=== PATIENT | female | born 1995 | race Caucasian/White ===

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

== ENCOUNTER 2017-08-03 13:42 | Emergency (ER) | payer OTHER ==
[2017-08-03 13:46] VITALS: BP 142/75; PULSE 109; TEMP 99.2; BMI 25.2
--- NOTE | 2017-08-03 13:48 | PDOC ---
History of Present Illness - General History Source: Patient Exam Limitations: No Limitations - History of Present Illness Initial Comments: 08/03/17 15:22 The patient is a 21 year old female with a significant past medical history of asthma, who presents to the ED with a worsening cough and cold. Patient complains of throat pain, fatigue, and subjective fevers as well. Patient denies taking any over the counter medications. Patient denies fever, nausea, vomiting, diarrhea. Denies dysuria, frequency, hematuria. Patient denies recent travels. Patient states her sister recently had streptococcal pharyngitis. Patient is also a college student. LMP: Jul 15, 2017. Patient denies any allergies to meds. <Tomás Muller - Last Filed: 08/03/17 15:43> <Luciano Shearer - Last Filed: 08/03/17 16:18> - General Chief Complaint: Cold Symptoms Stated Complaint: COUGH Time Seen by Provider: 08/03/17 13:48 Past History <Tomás Muller - Last Filed: 08/03/17 15:43> - Past Medical History Asthma: Yes Other medical history: PIT TUMOR - Reproductive History (#): 0 Para: 0 Spontaneous : 0 - Immunization History Immunization Up to Date: Yes - Suicide/Smoking/Psychosocial Hx Smoking History: Never smoked Have you smoked in the past 12 months: No Number of Cigarettes Smoked Daily: 0 Hx Alcohol Use: No Drug/Substance Use Hx: No Substance Use Type: None <Luciano Shearer - Last Filed: 08/03/17 16:18> - Past Medical History Allergies/Adverse Reactions: Allergies Allergy/AdvReac Type Severity Reaction Status Date / Time No Known Allergies Allergy Verified 08/03/17 13:43 Home Medications: Ambulatory Orders Albuterol 0.083% Nebulizer Evelyne [Ventolin 0.083% Nebulizer Soln -] 1 amp PO ASDIR #1 box 04/19/16 Guaifenesin/Pseudoephedrne HCl [Mucinex D ER Tablet] 1 each PO DAILY #10 tab.er.12h 08/03/17 Salmeterol/Fluticasone [Advair 250Mcg/50Mcg -] 1 inh IH BID #1 inh 08/03/17 Review of Systems - Review of Systems Able to Perform ROS?: Yes Comments:: 08/03/17 15:23 GENERAL/CONSTITUTIONAL: + subjective fevers. + fatigue. No chills. HEAD, EYES, EARS, NOSE AND THROAT: + sore throat. No change in vision. CARDIOVASCULAR: No chest pain or shortness of breath. RESPIRATORY: + cough. No wheezing, or hemoptysis. GASTROINTESTINAL: No nausea, vomiting, diarrhea or constipation. GENITOURINARY: No dysuria, frequency, or change in urination. MUSCULOSKELETAL: No joint or muscle swelling or pain. No neck or back pain. SKIN: No rash NEUROLOGIC: + headache. No vertigo, loss of consciousness, or change in strength /sensation. ENDOCRINE: No increased thirst. No abnormal weight change. HEMATOLOGIC/LYMPHATIC: No anemia, easy bleeding, or history of blood clots. ALLERGIC/IMMUNOLOGIC: No hives or skin allergy. <Tomás Muller - Last Filed: 08/03/17 15:43> *Physical Exam - Vital Signs Last Vital Signs Temp Pulse Resp BP Pulse Ox 99.2 F 109 H 20 142/75 99 08/03/17 13:43 08/03/17 13:43 08/03/17 13:43 08/03/17 13:43 08/03/17 13:43 - Physical Exam Comments: 08/03/17 15:25 GENERAL: Awake, alert, and fully oriented, in no acute distress HEAD: No signs of trauma EYES: PERRLA, EOMI, sclera anicteric, conjunctiva clear ENT: Significant nasal congestion with watery discharge. Ears clear. Throat clear. No sign of erythema exudates or swelling. No sinus tenderness to palpation.. No nodes palpated. Moist mucosa NECK: Normal ROM, supple, no lymphadenopathy, JVD, or masses LUNGS: Breath sounds equal, clear to auscultation bilaterally. No wheezes, and no crackles HEART: Regular rate and rhythm, normal S1 and S2, no murmurs, rubs or gallops ABDOMEN: Soft, nontender, normoactive bowel sounds. No guarding, no rebound. No masses EXTREMITIES: Normal range of motion, no edema. No clubbing or cyanosis. No cords, erythema, or tenderness NEUROLOGICAL: Cranial nerves II through XII grossly intact. Normal speech, normal gait SKIN: Warm, Dry, normal turgor, no rashes or lesions noted. <Tomás Muller - Last Filed: 08/03/17 15:43> - Vital Signs Last Vital Signs Temp Pulse Resp BP Pulse Ox 99.2 F 109 H 20 142/75 99 08/03/17 13:43 08/03/17 13:43 08/03/17 13:43 08/03/17 13:43 08/03/17 13:43 <Luciano Shearer - Last Filed: 08/03/17 16:18> ED Treatment Course - ADDITIONAL ORDERS Additional order review: Laboratory Results 08/03/17 14:49 Urine HCG, Qual Negative <Tomás Muller - Last Filed: 08/03/17 15:43> Medical Decision Making - Medical Decision Making 08/03/17 16:16 Strep is negative No nodes or hepatosplenomegaly, nor acute pharyngitis suspicious of mono No wheezing with full breath sounds throughout bilaterally. No sign of bronchitis or pneumonia Significant nasal congestion with watery discharge suggestive of a viral URI Maintenance medications for asthma were refilled, including Advair and albuterol rescue inhaler Mucinex with decongestant for comfort. Tylenol and Advil as needed. Follow-up with primary physician or return to ER if there is fever, chest pain, shortness of breath, or worsening of symptoms. Fully ambulatory and in no distress upon discharge to follow-up as directed <Luciano Shearer - Last Filed: 08/03/17 16:18> *DC/Admit/Observation/Transfer - Attestations Scribe Attestion: 08/03/17 15:25 Documentation prepared by Tomás Muller, acting as medical dosimetrist for Luciano Arndt MD/. <Tomás Muller - Last Filed: 08/03/17 15:43> - Discharge Dispostion Admit: No <Luciano Shearer - Last Filed: 08/03/17 16:18> Diagnosis at time of Disposition: Viral URI with cough - Discharge Dispostion Disposition: HOME Condition at time of disposition: Stable - Prescriptions Prescriptions: Salmeterol/Fluticasone [Advair 250Mcg/50Mcg -] 1 inh IH BID #1 inh Guaifenesin/Pseudoephedrne HCl [Mucinex D ER Tablet] 1 each PO DAILY #10 tab.er.12h - Referrals Referrals: Miri Fuentes MD [Staff Physician] - 1 week - Patient Instructions Printed Discharge Instructions: DI for Viral Upper Respiratory Infection -- Adult Additional Instructions: If there is wheezing, shortness of breath, or chest tightness, use your albuterol inhaler or nebulizer. Consider using Symbicort daily during the ALLERGY season to control your asthma. Decongestants and expectorant as directed may help if symptoms Antibiotics will probably not help, and may be harmful, since this is most likely a virus infection, and your normal germs (bacteria ) assist in controlling viruses. - Post Discharge Activity Forms/Work/School Notes: Back to Work
== END 2017-08-03 16:15 | disposition home or self-care (01) ==
LOC: FER 13:42
DX: J06.9 Acute upper respiratory infection, unspecified (principal); R05 Cough; J45.909 Unspecified asthma, uncomplicated
CPT/HCPCS: 84703; 87070; 87430; 99282-25

== ENCOUNTER 2017-08-06 09:33 | Emergency (ER) | payer OTHER ==
[2017-08-06 09:37] VITALS: BP 139/84; PULSE 92; TEMP 98.5; BMI 25.6
[2017-08-06] MEDS ORDERED: predniSONE 20 MG TABLET (UD) PO ONE (10:04)
[2017-08-06] MEDS ORDERED: ALBUTEROL SO4 2.5/IPRATROPIUM 0.5 INH SOL 3 ML VIAL.NEB. NEB ONE ×4 (10:04→11:14)
--- NOTE | 2017-08-06 10:31 | PDOC ---
History of Present Illness - General Chief Complaint: RX Refill Stated Complaint: Wants prescription for Albuterol Time Seen by Provider: 08/06/17 09:58 History Source: Patient Exam Limitations: No Limitations - History of Present Illness Initial Comments: 08/06/17 10:25 Patient states has asthma exacerbation. Was seen 3 days ago at [facility] emergency department and provided albuterol nebulizers. At that time she did not realize she had was out of her albuterol solution for her nebulizer at home and has had continued wheezing and worsening. Denies fever, denies purulent drainage with cough, but feels is tight. Did not receive prednisone or steroids without deficit. 08/06/17 11:15 Timing/Duration: unsure, 1 week Severity: mild Modifying Factors: improves with: medication Associated Symptoms: reports: cough, headaches, malaise. denies: fever/chills Past History - Travel Traveled outside of the country in the last 30 days: No Close contact w/someone who was outside of country & ill: No - Past Medical History Allergies/Adverse Reactions: Allergies Allergy/AdvReac Type Severity Reaction Status Date / Time No Known Allergies Allergy Verified 08/06/17 09:36 Home Medications: Ambulatory Orders Albuterol 0.083% Nebulizer Evelyne [Ventolin 0.083% Nebulizer Soln -] 1 amp PO ASDIR #1 box 04/19/16 Guaifenesin/Pseudoephedrne HCl [Mucinex D ER Tablet] 1 each PO DAILY #10 tab.er.12h 08/03/17 Salmeterol/Fluticasone [Advair 250Mcg/50Mcg -] 1 inh IH BID #1 inh 08/03/17 Albuterol 0.083% Nebulizer Evelyne [Ventolin 0.083% Nebulizer Soln -] 1 neb NEB Q4H PRN #30 vial 08/06/17 Asthma: Yes - Reproductive History (#): 0 Para: 0 Spontaneous : 0 - Immunization History Immunization Up to Date: Yes - Suicide/Smoking/Psychosocial Hx Smoking History: Never smoked Have you smoked in the past 12 months: No Number of Cigarettes Smoked Daily: 0 Information on smoking cessation initiated: No Hx Alcohol Use: No Drug/Substance Use Hx: No Substance Use Type: None Review of Systems - Review of Systems Able to Perform ROS?: Yes Is the patient limited [place] proficient: Yes Constitutional: Yes: Symptoms Reported, See HPI, Chills, Loss of Appetite, Malaise HEENTM: Yes: Symptoms Reported, See HPI, Nose Congestion. No: Throat Swelling, Mouth Pain Respiratory: Yes: Symptoms reported, See HPI, Cough, Wheezing ABD/GI: No: Symptoms Reported Integumentary: Yes: See HPI. No: Symptoms Reported *Physical Exam - Vital Signs Last Vital Signs Temp Pulse Resp BP Pulse Ox 98.5 F 92 H 19 139/84 97 08/06/17 09:35 08/06/17 09:35 08/06/17 09:35 08/06/17 09:35 08/06/17 09:35 - Physical Exam General Appearance: Yes: Nourished, Appropriately Dressed HEENT: positive: BABAK, TMs Normal, Pharynx Normal (no redness or swelling , ) Neck: negative: Tender Respiratory/Chest: positive: Wheezing (course and tight inspiratory breath sounds bilaterally oozing). negative: Lungs Clear, Normal Breath Sounds Cardiovascular: positive: Regular Rhythm Gastrointestinal/Abdominal: positive: Normal Bowel Sounds, Soft. negative: Tender Musculoskeletal: positive: Normal Inspection. 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 Used Kenalog as pharmacy will not approve prednisone as an outpatient, Cont wheezing but much better. Will provide 3rd treatmetn and discharge when completed. 08/06/17 11:12 *DC/Admit/Observation/Transfer Diagnosis at time of Disposition: Asthma flare Qualifiers: Asthma severity: mild Asthma persistence: intermittent Qualified Code(s): J45.21 - Mild intermittent asthma with (acute) exacerbation - Discharge Dispostion Disposition: HOME Condition at time of disposition: Stable Admit: No - Prescriptions Prescriptions: Albuterol 0.083% Nebulizer Evelyne [Ventolin 0.083% Nebulizer Soln -] 1 neb NEB Q4H PRN #30 vial PRN Reason: Cough - Referrals Referrals: Aleksandar Fatima MD [Primary Care Provider] - - Patient Instructions Additional Instructions: Rest, drink lots of fluids: Teas, water, soups, Pedialyte Saltwater gargles Steamy showers/seem to face break up mucus Avoid contact with others until fevers and cough resolved Lots of handwashing and good hygiene Continue [id number] medications for symptomatic relief Tylenol or Motrin for fever and pain Continue albuterol nebulizers every 4-6 hours for the next 2 days then as needed for continued cough Followup with private physician in one to 2 days Return to emergency department / pediatric hospital for worsened symptoms, fevers, dehydration - Post Discharge Activity Forms/Work/School Notes: Back to Work
[2017-08-06] MEDS ORDERED: TRIAMCINOLONE ACET 40MG/1ML VIAL IM ONE (10:41)
[2017-08-06] MEDS ORDERED: TRIAMCINOLONE ACET 40MG/1ML VIAL ONE (10:44)
== END 2017-08-06 11:44 | disposition home or self-care (01) ==
LOC: JERFT 09:33
PROC: 3E033NZ Introduction of Analgesics, Hypnotics, Sedatives into Peripheral Vein, Percutaneous Approach (ICD-10-PCS; principal; 2017-08-06)
PROC: 3E0F7GC Introduction of Other Therapeutic Substance into Respiratory Tract, Via Natural or Artificial Opening (ICD-10-PCS; 2017-08-06)
PROC: 3E0F7GC Introduction of Other Therapeutic Substance into Respiratory Tract, Via Natural or Artificial Opening (ICD-10-PCS; 2017-08-06)
DX: Z76.0 Encounter for issue of repeat prescription (principal); J45.21 Mild intermittent asthma with (acute) exacerbation
CPT/HCPCS: 84703; 94640; 96374; 99281-25

== ENCOUNTER 2018-08-12 22:56 | Emergency (ER) | payer OTHER ==
[2018-08-12 23:06] VITALS: BP 123/77; PULSE 74; TEMP 97.9; BMI 29.2
[2018-08-12] MEDS ORDERED: ALBUTEROL SO4 2.5/IPRATROPIUM 0.5 INH SOL 3 ML VIAL.NEB. NEB ONE ×2 (23:12→23:18)
--- NOTE | 2018-08-12 23:13 | PDOC ---
History of Present Illness - General History Source: Patient Exam Limitations: No Limitations - History of Present Illness Initial Comments: 08/12/18 23:24 The patient is a 22 year old female, with a significant PMH of asthma, who presents to the emergency department with asthma beginning approximately 1 month ago that has progressively worsened yesterday. The patient reports endorsing associated symptoms of cough with phlegm, chest tightness, wheezing, sore throat, ear pain, and headaches. The patient reports she has been using her inhaler 2x a day for the past month, no relief. The patient denies chest pain, lightheadedness, and dizziness.Denies fever, chills, nausea, vomit, diarrhea and constipation. Allergies: NKDA Past surgical history:None reported Social history: None reported PCP: None reported <Stephenie Flores - Last Filed: 08/12/18 23:24> <Sheri Fagan - Last Filed: 08/13/18 04:50> - General Chief Complaint: Asthma Stated Complaint: ASTHMA Time Seen by Provider: 08/12/18 22:58 Past History <Stephenie Flores - Last Filed: 08/12/18 23:24> - Past Medical History Asthma: Yes COPD: No CHF: No - Reproductive History (#): 0 Para: 0 Spontaneous : 0 - Immunization History Immunization Up to Date: Yes - Suicide/Smoking/Psychosocial Hx Smoking History: Never smoked Have you smoked in the past 12 months: No Number of Cigarettes Smoked Daily: 0 Information on smoking cessation initiated: No Hx Alcohol Use: No Drug/Substance Use Hx: No Substance Use Type: None <Sheri Fagan - Last Filed: 08/13/18 04:50> - Past Medical History Allergies/Adverse Reactions: Allergies Allergy/AdvReac Type Severity Reaction Status Date / Time No Known Allergies Allergy Verified 08/12/18 22:58 Home Medications: Ambulatory Orders Albuterol 0.083% Nebulizer Evelyne [Ventolin 0.083% Nebulizer Soln -] 1 amp NEB QID PRN #30 amp 08/12/18 Albuterol Sulfate Inhaler - [Ventolin Hfa Inhaler -] 1 - 2 inh PO QID 08/12/18 Review of Systems - Review of Systems Able to Perform ROS?: Yes Comments:: 08/12/18 23:24 GENERAL/CONSTITUTIONAL: No fever or chills. No weakness. HEAD, EYES, EARS, NOSE AND THROAT: +Sore throat, + ear pain.No change in vision. CARDIOVASCULAR:+Chest tightness. RESPIRATORY: +wheezing. No cough or hemoptysis. GASTROINTESTINAL: No nausea, vomiting, diarrhea or constipation. GENITOURINARY: No dysuria, frequency, or change in urination. MUSCULOSKELETAL: No joint or muscle swelling or pain. No neck or back pain. SKIN: No rash NEUROLOGIC: + headache. No vertigo, loss of consciousness, or change in strength /sensation. ENDOCRINE: No increased thirst. No abnormal weight change. HEMATOLOGIC/LYMPHATIC: No anemia, easy bleeding, or history of blood clots. ALLERGIC/IMMUNOLOGIC: No hives or skin allergy. <Stephenie Flores - Last Filed: 08/12/18 23:24> *Physical Exam - Vital Signs Last Vital Signs Temp Pulse Resp BP Pulse Ox 97.9 F 74 18 123/77 100 08/12/18 23:01 08/12/18 23:01 08/12/18 23:01 08/12/18 23:01 08/12/18 23:01 - Physical Exam Comments: 08/12/18 23:24 GENERAL: Awake, alert, and fully oriented, in no acute distress HEAD: No signs of trauma EYES: PERRLA, EOMI, sclera anicteric, conjunctiva clear ENT: Auricles normal inspection, hearing grossly normal, nares patent, oropharynx clear without exudates. Moist mucosa NECK: Normal ROM, supple, no lymphadenopathy, JVD, or masses LUNGS:+Scattered bilateral expiratory wheezing with good air exchange. HEART: Regular rate and rhythm, normal S1 and S2, no murmurs, rubs or gallops ABDOMEN: Soft, nontender, normoactive bowel sounds. No guarding, no rebound. No masses EXTREMITIES: Normal range of motion, no edema. No clubbing or cyanosis. No cords, erythema, or tenderness NEUROLOGICAL: Cranial nerves II through XII grossly intact. Normal speech, normal gait SKIN: Warm, Dry, normal turgor, no rashes or lesions noted. <Stephenie Flores - Last Filed: 08/12/18 23:24> - Vital Signs Last Vital Signs Temp Pulse Resp BP Pulse Ox 97.9 F 74 18 123/77 100 08/12/18 23:01 08/12/18 23:01 08/12/18 23:01 08/12/18 23:01 08/12/18 23:01 <Sheri Fagan - Last Filed: 08/13/18 04:50> Progress Note - Progress Note Progress Note: Documentation has been prepared under my direction and personally reviewed by me in its entirety. I attest that this documented accurately reflects all work, treatment, procedures and medical decision making performed by me. <Sheri Fagan - Last Filed: 08/13/18 04:50> Medical Decision Making - Medical Decision Making As noted above, this 22-year-old girl with a lifelong history of asthma, presents with a few week history of increased chest tightness/wheezing. She had been seen by a practitioner in her PMDs office and albuterol inhaler was prescribed. The patient was unable to pepper picker the inhaler and has noticed wheezing today. There has been no fever/purulent sputum. Exam as noted DuoNeb nebulizer treatment given with excellent results: Repeat lung exam reveals clear lungs and excellent air exchange. Patient will be discharged with prescription for albuterol ampules for nebulizer treatment. She will pick her inhaler up at her pharmacy tomorrow. Meanwhile, she can use a nebulizer treatment as needed for wheezing up to 3 times a day. She should drink plenty of fluids and follow-up with Dr. Juarez the next 5-7 days. She should return to the ER if she has persistent severe wheezing, chest tightness or high fever. <Sheri Fagan - Last Filed: 08/13/18 04:50> *DC/Admit/Observation/Transfer - Attestations Scribe Attestion: 08/12/18 23:25 Documentation prepared by Stephenie Flores, acting as medical technical writer for Sheri Fagan MD. <Stephenie Flores - Last Filed: 08/12/18 23:24> <Sheri Fagan - Last Filed: 08/13/18 04:50> Diagnosis at time of Disposition: Asthma flare Qualifiers: Asthma severity: mild Asthma persistence: intermittent Qualified Code(s): J45.21 - Mild intermittent asthma with (acute) exacerbation - Discharge Dispostion Disposition: HOME Condition at time of disposition: Stable - Prescriptions Prescriptions: Albuterol 0.083% Nebulizer Evelyne [Ventolin 0.083% Nebulizer Soln -] 1 amp NEB QID PRN #30 amp PRN Reason: Wheezing - Referrals Referrals: Baudilio Fatima MD [Primary Care Provider] - 1 week - Patient Instructions Printed Discharge Instructions: Asthma -- Adult Additional Instructions: Continue albuterol inhaler as prescribed can use asthma nebulizer treatment up to 3 times a day if you have persistent wheezing Return to ER if you have shortness of breath/high fever/persistent severe wheezing Follow-up with within 5-7 days - Post Discharge Activity
== END 2018-08-12 23:53 | disposition home or self-care (01) ==
LOC: FER 22:56
PROC: 3E0F7GC Introduction of Other Therapeutic Substance into Respiratory Tract, Via Natural or Artificial Opening (ICD-10-PCS; principal; 2018-08-12)
DX: J45.21 Mild intermittent asthma with (acute) exacerbation (principal)
CPT/HCPCS: 99281-25

== ENCOUNTER 2018-12-19 22:07 | Emergency (ER) | payer OTHER ==
[2018-12-19 22:19] VITALS: BP 128/78; PULSE 89; TEMP 97.8; BMI 30.2
[2018-12-19] MEDS ORDERED: ALBUTEROL SO4 2.5/IPRATROPIUM 0.5 INH SOL 3 ML VIAL.NEB. NEB ONE (22:31)
[2018-12-19] MEDS ORDERED: predniSONE 20 MG TABLET (UD) ONE (22:31)
--- NOTE | 2018-12-19 22:32 | PDOC ---
History of Present Illness - General History Source: Patient Exam Limitations: No Limitations - History of Present Illness Initial Comments: 12/19/18 22:50 The patient is a 23 year old female, with a significant past medical history of Asthma (on Symbicort due to the use of her inhaler) who presents to the emergency department with SOB and chest tightness since Tuesday. The patient notes her chest hurts while breathing and has nasal congestion. Patient notes her symptoms are similar to her previous asthma symptoms. The patient denies fever, chills, nausea, vomit, diarrhea or constipation. The patient denies dysuria, frequency, urgency or hematuria. PAST MEDICAL HISTORY: no significant history PAST SURGICAL HISTORY: no significant history FAMILY HISTORY: no pertinent history SOCIAL HISTORY: Pt lives with family and is employed. MEDICATIONS: reviewed ALLERGIES: As per nursing notes <Annelise Moser - Last Filed: 12/19/18 22:50> - General History Source: Patient Exam Limitations: No Limitations - History of Present Illness Initial Comments: 12/19/18 22:34 A portion of this note was documented by scribe services under my direction. I have reviewed the details of the note, within reason, and agree with the documentation with the following case summary and management plan written by me. Patient treated in the ED. Nursing notes are reviewed and incorporated into the medical decision-making. Vital signs reviewed. Assessment and plan: This is 23-year-old female who comes in complaining of shortness of breath and tightness in chest. Patient has a history of asthma and said this is similar to her asthma symptoms. Patient is been following up with her vice president quality assurance and was recently started on Symbicort because she is using her inhaler more frequently. On my exam patient was wheezing will start her with a couple a DuoNeb's and some oral prednisone 40 mg Will reassess and reevaluate post DuoNeb said prednisone 12/19/18 23:11 Reassessment patient's lungs are now clear able to take full deep breaths without difficulty. Patient discharged home on a short course of steroids told to continue heard inhaler and follow-up with her vice president quality assurance <Silvestre Oro I - Last Filed: 12/19/18 23:14> - General Chief Complaint: Asthma Stated Complaint: DIFFICULTY BREATHING TIGHTNESS IN CHEST X 2 MONTHS Time Seen by Provider: 12/19/18 22:26 Past History <Annelise Moser - Last Filed: 12/19/18 22:50> - Past Medical History Asthma: Yes COPD: No CHF: No - Reproductive History (#): 0 Para: 0 Spontaneous : 0 - Immunization History Immunization Up to Date: Yes - Suicide/Smoking/Psychosocial Hx Smoking History: Never smoked Have you smoked in the past 12 months: No Number of Cigarettes Smoked Daily: 0 Information on smoking cessation initiated: No Hx Alcohol Use: No Drug/Substance Use Hx: No Substance Use Type: None <Silvestre Oro I - Last Filed: 12/19/18 23:14> - Past Medical History Allergies/Adverse Reactions: Allergies Allergy/AdvReac Type Severity Reaction Status Date / Time No Known Allergies Allergy Verified 12/19/18 22:11 Home Medications: Ambulatory Orders Albuterol Sulfate Inhaler - [Ventolin Hfa Inhaler -] 1 - 2 inh PO QID 08/12/18 Budesonide/Formeterol Fumarate [SYMBICORT 80/4.5mcg -] 1 inh PO DAILY 12/19/18 Prednisone [Deltasone] 40 mg PO DAILY #8 tablet 12/19/18 Review of Systems - Review of Systems Able to Perform ROS?: Yes Comments:: 12/19/18 22:51 General: No fevers or chills, no weakness, no weight loss HEENT: No change in vision. No sore throat,. No ear pain CardioVascular: (+) chest tightness, (+) shortness of breath Respiratory: (+) nasal congestion.No cough, or wheezing. Gastrointestinal: no nausea, vomiting, diarrhea or constipation, No rectal bleeding Genitourinary: No dysuria, hematuria, or frequency Musculoskeletal: No joint or muscle pain or swelling Neurologic: No headache, vertigo, dizziness or loss of consciousness Psychiatric: nor depression Skin: No rashes or easy bruising Endocrine: no increased thirst or abnormal weight change Allergic: no skin or latex allergy All other systems reviewed and normal All Other Systems: Reviewed and Negative <Annelise Moser - Last Filed: 12/19/18 22:50> *Physical Exam - Vital Signs Last Vital Signs Temp Pulse Resp BP Pulse Ox 97.8 F 89 18 128/78 99 12/19/18 22:14 12/19/18 22:14 12/19/18 22:14 12/19/18 22:14 12/19/18 22:14 - Physical Exam Comments: 12/19/18 22:52 General: Well-nourished well-developed individual, no acute distress HEENT: Throat: Normal, tonsils normal, no erythema or exudate Neck: Supple, no meningeal signs, no lymphadenopathy Eyes::Pupils equal reactive and round, extraocular motion intact Chest: Nontender to palpation Cardiac: S1-S2 normal, regular rate and rhythm, no murmurs rubs or gallops Respiratory: (+) expiratory wheezing bilaterally lower lung field primarily Extremities: Warm, dry, no cyanosis, clubbing, or edema Skin: No rashes Neuro: Alert and oriented x3, nonfocal exam, grossly intact, normal gait Psych: Normal mood and affect <Annelise Moser - Last Filed: 12/19/18 22:50> - Vital Signs Last Vital Signs Temp Pulse Resp BP Pulse Ox 97.8 F 89 18 128/78 99 12/19/18 22:14 12/19/18 22:14 12/19/18 22:14 12/19/18 22:14 12/19/18 22:14 <Silvestre Oro I - Last Filed: 12/19/18 23:14> Moderate Sedation - Procedure Monitoring Vital Signs: Procedure Monitoring Vital Signs Temperature 97.8 F 12/19/18 22:14 Pulse Rate 89 12/19/18 22:14 Respiratory Rate 18 12/19/18 22:14 Blood Pressure 128/78 12/19/18 22:14 O2 Sat by Pulse Oximetry (%) 99 12/19/18 22:14 <Annelise Moser - Last Filed: 12/19/18 22:50> - Procedure Monitoring Vital Signs: Procedure Monitoring Vital Signs Temperature 97.8 F 12/19/18 22:14 Pulse Rate 89 12/19/18 22:14 Respiratory Rate 18 12/19/18 22:14 Blood Pressure 128/78 12/19/18 22:14 O2 Sat by Pulse Oximetry (%) 99 12/19/18 22:14 <Silvestre Oro I - Last Filed: 12/19/18 23:14> ED Treatment Course - Medications Given in the ED: ED Medications Discontinued Medications Generic Name Dose Route Start Last Admin Trade Name Power PRN Reason Stop Dose Admin Prednisone 40 mg 12/19/18 22:36 12/19/18 22:39 Deltasone - PO 12/19/18 22:37 40 mg ONCE ONE Administration <Annelise Moser - Last Filed: 12/19/18 22:50> *DC/Admit/Observation/Transfer - Attestations Scribe Attestion: 12/19/18 23:00 Documentation prepared by Annelise Moser, acting as caregivers non medical for Silvestre Oro MD <Annelise Moser - Last Filed: 12/19/18 22:50> - Discharge Dispostion Decision to Admit order: No <Silvestre Oro I - Last Filed: 12/19/18 23:14> Diagnosis at time of Disposition: Asthma exacerbation Qualifiers: Asthma severity: mild Asthma persistence: persistent Qualified Code(s): J45.31 - Mild persistent asthma with (acute) exacerbation - Discharge Dispostion Disposition: HOME Condition at time of disposition: Stable - Referrals Referrals: Baudilio Fatima MD [Primary Care Provider] - - Patient Instructions Additional Instructions: Take prednisone 40 mg a day for 4 days. Continue to take her Symbicort and use your inhaler as needed. Call your pulmonary doctor in the morning let your doctor know that you were here in the emergency room and follow-up with your doctor. Return to the emergency department immediately with ANY new, persistent or worsening symptoms. Continue any medications as previously prescribed by your physician. You should follow up with your primary doctor as soon as possible regarding today's emergency department visit. . Please make sure your doctor reviews the results of your emergency evaluation. Thank you for coming to the Emergency Department today for your care. It was a pleasure to see you today. Please note that your evaluation is INCOMPLETE until you follow-up with your doctor. - Post Discharge Activity
[2018-12-19] MEDS ORDERED: predniSONE 20 MG TABLET (UD) PO ONE (22:36)
[2018-12-19] MEDS ORDERED: ALBUTEROL SO4 2.5/IPRATROPIUM 0.5 INH SOL 3 ML VIAL.NEB. NEB SCH (22:45)
== END 2018-12-19 23:22 | disposition home or self-care (01) ==
LOC: FER 22:07
PROC: 3E0F7GC Introduction of Other Therapeutic Substance into Respiratory Tract, Via Natural or Artificial Opening (ICD-10-PCS; principal; 2018-12-19)
DX: J45.31 Mild persistent asthma with (acute) exacerbation (principal)
CPT/HCPCS: 94640; 99281-25

== ENCOUNTER 2019-07-05 04:33 | Emergency (ER) | payer OTHER ==
[2019-07-05 05:00] VITALS: BMI 31.6
--- NOTE | 2019-07-05 05:27 | PDOC ---
Attending Attestation - Resident Resident Name: Jaclyn Abebe - ED Attending Attestation I have performed the following: I have examined & evaluated the patient, The case was reviewed & discussed with the resident, I agree w/resident's findings & plan - HPI HPI: 07/05/19 06:13 see resident hpi - Physicial Exam PE: 07/05/19 06:13 agree with resident exam - Medical Decision Making 07/05/19 06:14 23-year-old female with asthma exacerbation On exam status post Solu-medrol 125 mg ivpb and DuoNeb's patient's wheezing is diminished and air entry bilaterally is greatly improved Plan for DC with Medrol Dosepak and nebulizer treatment refill as requested by the patient
[2019-07-05] MEDS ORDERED: ALBUTEROL SO4 2.5/IPRATROPIUM 0.5 INH SOL 3 ML VIAL.NEB. NEB ONE (05:39)
--- NOTE | 2019-07-05 05:40 | PDOC ---
History of Present Illness - General Chief Complaint: Shortness of Breath Stated Complaint: DIFFICULTY BREATHING/ASTHMA Time Seen by Provider: 07/05/19 05:25 Past History - Past Medical History Allergies/Adverse Reactions: Allergies Allergy/AdvReac Type Severity Reaction Status Date / Time No Known Allergies Allergy Verified 07/05/19 05:00 Home Medications: Ambulatory Orders Albuterol Sulfate Inhaler - [Ventolin Hfa Inhaler -] 1 - 2 inh PO QID 08/12/18 Budesonide/Formeterol Fumarate [SYMBICORT 80/4.5mcg -] 1 inh PO DAILY 12/19/18 Methylprednisolone [Medrol Dose Nigel] 4 mg PO ASDIR #21 tablet 07/05/19 Asthma: Yes COPD: No CHF: No - Reproductive History (#): 0 Para: 0 Spontaneous : 0 - Immunization History Immunization Up to Date: Yes - Suicide/Smoking/Psychosocial Hx Smoking History: Never smoked Have you smoked in the past 12 months: No Number of Cigarettes Smoked Daily: 0 Hx Alcohol Use: No Drug/Substance Use Hx: No Substance Use Type: None *Physical Exam - Vital Signs Last Vital Signs Temp Pulse Resp BP Pulse Ox 98.1 F 81 20 124/77 96 07/05/19 04:35 07/05/19 04:35 07/05/19 04:35 07/05/19 04:35 07/05/19 04:35 Medical Decision Making - Medical Decision Making HPI: 23yo F with PMH of asthma, pituitary tumor, seasonal allergies presenting with asthma exacerbation x 1 day. She believes she is undergoing a mild to moderate exacerbation. Patient states her usual asthma triggers include seasonal allergies. Has been taking her brother's albuterol inhaler because hers ran out about one week ago. She takes the inhaler every two hours which helps but only for a short time. Never been intubated or admitted to the hospital for her asthma. Has not taken steroids "for a long time." No fevers, chills, chest pain , or abdominal pain. PCP: Dr. Baudilio Fatima ROS: Constitutional: no fever, no chills HEENT: no throat pain, no dysphagia Cardiovascular: no chest pain, no palpitations Respiratory: no cough, +shortness of breath Gastrointestinal: no abdominal pain, no nausea Genitourinary: no dysuria, no hematuria Musculoskeletal: no myalgia, no arthralgia Skin: no rash, no itching Neurologic: no headache, no weakness PE: General: Awake, alert, and fully oriented, in no acute distress Head: No signs of trauma Eyes: EOMI, sclera anicteric ENT: Moist mucus membranes Neck: Normal ROM, supple Lungs: Diffuse expiratory wheezes present bilaterally Cardio: Regular rhythm, S1 and S2 present Abdomen: Soft, nontender Extremities: Normal range of motion, Distal pulses present, no calf tenderness SKIN: Warm, Dry, normal turgor Neurologic: Cranial nerves II through XII grossly intact. Normal speech ED Course/MDM: DDX including but not limited to asthma exacerbation, pneumonia, PE, bronchitis Satting well on room air Duonebs Solu-medrol History and physical consistent with asthma exacerbation. We will treat medically and reassess. 07/05/19 05:39 Patient with significantly improved lung exam with no wheezes appreciated. Patient states she is feeling better. Refills for medrol dose nigel, albuterol inhaler, and albuterol solution sent to pharmacy Discharged with return precautions *DC/Admit/Observation/Transfer Diagnosis at time of Disposition: Asthma exacerbation Qualifiers: Asthma severity: moderate Asthma persistence: unspecified Qualified Code(s): J45.901 - Unspecified asthma with (acute) exacerbation - Discharge Dispostion Disposition: HOME Condition at time of disposition: Improved - Prescriptions Prescriptions: Methylprednisolone [Medrol Dose Nigel] 4 mg PO ASDIR #21 tablet - Referrals Referrals: Baudilio Fatima MD [Primary Care Provider] - - Patient Instructions Printed Discharge Instructions: DI for Asthma -- Adult Additional Instructions: You were seen in the emergency department for shortness of breath. You received a breathing treatment and IV steroids which improved your symptoms. Follow-up with your primary care doctor within 72 hours to discuss this ED visit and to ensure you are progressing appropriately. Call and make an appointment. Your workup is not complete until you do so. We sent prescriptions to your pharmacy: Medrol dose nigel: Take as instructed on the packaging Albuterol 0.083% Nebulizer Solution/ inhaler: Take one treatment every four hours if you need it for your asthma Call for emergency medical services or go to the emergency room right away if any of the following occurs: Difficulty breathing, unrelieved by medications Tightness in chest, unrelieved by medications If you think you have an emergency, call for medical help right away. - Post Discharge Activity Forms/Work/School Notes: Back to Work
[2019-07-05] MEDS ORDERED: predniSONE 20 MG TABLET (UD) PO ONE (05:41)
[2019-07-05] MEDS ORDERED: methylPREDNISolone NA SUCC 125 MG/2 ML VIAL IVPUSH ONE (05:47)
[2019-07-05] MEDS ORDERED: ALBUTEROL SO4 8 GM HFA INHALER IH PRN (06:38)
[2019-07-05 07:42] VITALS: BP 118/67; PULSE 72; TEMP 98.1
[2019-07-05] MEDS ORDERED: ALBUTEROL SO4 0.083% IH SOL 2.5 MG/3 ML VIAL.NEB. NEB SCH (08:00)
== END 2019-07-05 07:34 | disposition home or self-care (01) ==
LOC: JER 04:33
PROC: 3E0F7GC Introduction of Other Therapeutic Substance into Respiratory Tract, Via Natural or Artificial Opening (ICD-10-PCS; principal; 2019-07-05)
PROC: 3E0333Z Introduction of Anti-inflammatory into Peripheral Vein, Percutaneous Approach (ICD-10-PCS; 2019-07-05)
DX: J45.901 Unspecified asthma with (acute) exacerbation (principal)
CPT/HCPCS: 99282-25

== ENCOUNTER 2019-11-13 09:53 | Emergency (ER) | payer OTHER ==
[2019-11-13 10:08] VITALS: BP 113/76; PULSE 70; TEMP 97.9; BMI 28.9
--- NOTE | 2019-11-13 10:21 | PDOC ---
History of Present Illness - General Chief Complaint: Respiratory Stated Complaint: FLU LIKE ILLNESS Time Seen by Provider: 11/13/19 10:06 History Source: Patient Exam Limitations: No Limitations - History of Present Illness Initial Comments: 11/13/19 10:18 24y F hx of asthma presents with nasal congestion, sore throat, mild nonproductive cough for the past 6 days. The patient recently travelled to [place], while there, she started to have cough/congestion and mild non productive cough without fever. Pt notse that her sore throat/congestion has improved, however the cough is nto getting tbetter. The cough seems worse at night, she has been using her inhaled corticosteroids and albuterol pump with some improvement. Pt hasnt used her meds since last night. states she feels ok right now. The patient denies any cp, Shortness of breath, dyspnea on exertion, leg swelling, Hemoptysis, leg pain, back pain, abdominal pain, nausea, vomiting. social: Patient denies any smoking, recreational drug use. ROS: Constitutional - no reported Fever, Chills, HEENT: +sore throat, nasal congestion. no reported vision changes, Respiratory: +cough, no reported sob, hemoptysis Cardiac: no reported chest pain, palpitations, light headedness, leg swelling Abd/GI: no reported abd pain, nausea, vomiting, blood per rectum, melena, diarrhea : no reported dysuria, frequency, discharge Musculskelatal - no reported back pain, joint swelling skin - no reported bruising, erythema, rash neurological: no reported headache, numbness, focal weakness, tingling, ataxia, hematologic: no reported easy bruising, easy bleeding Exam: GENERAL: The patient is awake, alert, and fully oriented, Nontoxic - in no acute distress. HEAD: Normocephalic, atraumatic. EYES: extraocular movements intact, sclera anicteric, conjunctiva clear. NECK: Normal range of motion, supple LUNGS: Breath sounds equal, clear to auscultation bilaterally. No wheezes, no rhonchi, no rales. HEART: Regular rate and rhythm, normal S1 and S2 without murmur, rub or gallop. ABDOMEN: Soft, nontender, No guarding, no rebound. No CVA tenderness EXTREMITIES: Normal range of motion, no edema. Negative Homans, No calf tenderness NEUROLOGICAL: No facial assymetry, Normal speech, Patient likely has a URI There is no current wheezing however the patient's worsening cough/wheezing at night May be reactive in nature to her URI Will obtain a chest x-ray to rule out pneumonia Past History - Past Medical History Allergies/Adverse Reactions: Allergies Allergy/AdvReac Type Severity Reaction Status Date / Time No Known Allergies Allergy Verified 11/13/19 09:58 Home Medications: Ambulatory Orders Albuterol Sulfate Inhaler - [Ventolin Hfa Inhaler -] 1 - 2 inh PO QID 08/12/18 Budesonide/Formeterol Fumarate [SYMBICORT 80/4.5mcg -] 1 inh PO DAILY 12/19/18 predniSONE [Deltasone -] 40 mg PO DAILY #11 tablet 11/13/19 Asthma: Yes COPD: No CHF: No - Reproductive History (#): 0 Para: 0 Spontaneous : 0 - Immunization History Immunization Up to Date: Yes - Psycho Social/Smoking Cessation Hx Smoking History: Never smoked Have you smoked in the past 12 months: No Number of Cigarettes Smoked Daily: 0 Hx Alcohol Use: No Drug/Substance Use Hx: No Substance Use Type: None *Physical Exam - Vital Signs Last Vital Signs Temp Pulse Resp BP Pulse Ox 97.9 F 70 15 113/76 99 11/13/19 09:54 11/13/19 09:54 11/13/19 09:54 11/13/19 09:54 11/13/19 09:54 Medical Decision Making - Medical Decision Making 11/13/19 11:41 cxr is clear without infiltrate suspect her coughing at night may be due to post nasal drip - will give her sudefed. if her cough/sob not improved at night with sudafed will give her rx for prednisone for likely reactive airway to URI. but will defer treatment with prednisone until after trial of sudafed return precautions were discussed I discussed the physical exam findings, ancillary test results and final diagnoses with the patient. I answered all of the patient's questions. The patient was satisfied with the care received and felt comfortable with the discharge plan and treatment plan. The patient will call their primary care physician within 24 hours to arrange follow-up and will return to the Emergency Department with any new, persistent or worsening symptoms. Discharge - Discharge Information Problems reviewed: Yes Clinical Impression/Diagnosis: Post-nasal drip URI (upper respiratory infection) Qualifiers: URI type: unspecified viral URI Qualified Code(s): J06.9 - Acute upper respiratory infection, unspecified Condition: Stable Disposition: HOME - Admission No - Follow up/Referral Referrals: Baudilio Fatima MD [Primary Care Provider] - - Patient Discharge Instructions Patient Printed Discharge Instructions: DI for Acute Bronchitis Additional Instructions: Return to the emergency department immediately with ANY new, persistent or worsening symptoms. Take the sudafed foryour nasal congestion, particularly befor eou go to bed. If you still have significant coughing without improvement, you can take the prednisone. You MUST call and follow up with your doctor in 4-5 days for further evaluation of your symptoms. Results were discussed with you. Please make sure your doctor reviews the results of your emergency evaluation. Your Emergency Department visit is not complete without a follow up with your doctor. - Post Discharge Activity
== END 2019-11-13 11:55 | disposition home or self-care (01) ==
LOC: FER 09:53
DX: J06.9 Acute upper respiratory infection, unspecified (principal)
CPT/HCPCS: 71046-TC-FY; 99281-25

== ENCOUNTER 2021-02-09 15:59 | Emergency (ER) | payer OTHER ==
[2021-02-09 16:21] VITALS: BP 119/67; PULSE 97; TEMP 99; BMI 29.2
[2021-02-09] MEDS ORDERED: FAMOTIDINE 20 MG/50 ML IVPB 20 MG/50 ML MG IVPB ONE ×2 (16:33→17:03)
[2021-02-09 17:28] LABS: BASO % 2.4 % (0-2.0); EOS % 5.3 % (0-4.5); HEMATOCRIT 41.2 % (32.4-45.2); HEMOGLOBIN 13.8 GM/dl (10.7-15.3); LYMPH % 26.5 % (8-40); MCH 29.9 pg (25.7-33.7); MCHC 33.4 g/dl (32.0-36.0); MEAN CELL VOLUME 89.4 fl (80-96); MEAN PLT VOLUME 10.5 fl (7.5-11.1); MONO % 9.4 % (3.8-10.2); NEUT % 56.4 % (42.8-82.8); PLATELET COUNT 257 K/MM3 (134-434); RBC 4.61 M/mm3 (3.60-5.2); RDW 11.9 % (11.6-15.6); WHITE BLOOD COUNT 7.1 K/mm3 (4.0-10.8)
[2021-02-09 17:45] LABS: INR 1.14 (0.82-1.09); PROTHROMBIN TIME (PATIENT) 12.7 SEC (10.2-13.0)
[2021-02-09 17:49] LABS: ALBUMIN 4.3 g/dl (3.4-5.0); BILIRUBIN,TOTAL 0.5 mg/dl (0.2-1); CALCIUM 9.6 mg/dl (8.5-10); CREATININE 0.7 mg/dl (0.55-1.3); TOT PROT 7.4 g/dl (6.4-8.2)
== END 2021-02-09 20:34 | disposition home or self-care (01) ==
LOC: FER 15:59
PROC: 3E033GC Introduction of Other Therapeutic Substance into Peripheral Vein, Percutaneous Approach (ICD-10-PCS; principal; 2021-02-09)
DX: K92.1 Melena (principal); R10.32 Left lower quadrant pain
CPT/HCPCS: 36415; 74177-TC; 80053; 81003; 82272; 83690; 84703; 85025; 85610; 86850; 86900; 86901; 87086; 99285-25; Q9967

== ENCOUNTER 2021-08-05 17:58 | Emergency (ER) | payer OTHER ==
[2021-08-05 18:06] VITALS: BP 109/72; PULSE 72; TEMP 98.2; BMI 27.8
[2021-08-05 20:19] LABS: HCG,QUALITATIVE URINE Negative
[2021-08-05 20:20] LABS: EPI CELLS 7 /uL (0-25.1); HYALINE CASTS 1 /uL (0-3.1); PH,URINE 6.5 (5.0-8.0); URINE APPEARANCE CLEAR; URINE BILIRUBIN 1+ (NEGATIVE); URINE COLOR ORANGE; URINE GLUCOSE (UA) NEGATIVE (NEGATIVE); URINE KETONE NEGATIVE (NEGATIVE); URINE LEUK ESTERASE 2+ (NEGATIVE); URINE NITRITE POSITIVE (NEGATIVE); URINE PROTEIN TRACE (NEGATIVE); URINE RBC 6 /uL (0-23.9); URINE WBC 88 /uL (0-25.8)
== END 2021-08-05 21:02 | disposition home or self-care (01) ==
LOC: JERFT 17:58
DX: N30.00 Acute cystitis without hematuria (principal)
CPT/HCPCS: 36415; 81003; 84703; 87086; 87186; 87491; 87591; 99283-25

== ENCOUNTER 2021-08-17 06:40 | Emergency (ER) | payer OTHER ==
[2021-08-17 07:03] VITALS: BP 114/73; PULSE 81; TEMP 98.5; BMI 28.3
[2021-08-17 09:23] LABS: EPITHELIAL CELLS FEW /hpf
== END 2021-08-17 07:47 | disposition home or self-care (01) ==
LOC: FER 06:40
DX: N30.90 Cystitis, unspecified without hematuria (principal)
CPT/HCPCS: 81003; 81015; 84703; 87086; 87186; 99283-25

== ENCOUNTER 2022-03-30 12:40 | Emergency (ER) | payer OTHER ==
[2022-03-30 13:01] VITALS: BMI 28.3
[2022-03-30] MEDS ORDERED: ALBUTEROL SO4 2.5/IPRATROPIUM 0.5 INH SOL 3 ML VIAL.NEB. NEB ONE ×2 (14:05→14:24)
[2022-03-30] MEDS ORDERED: ACETAMINOPHEN 500 MG TABLET (FP) PO ONE (14:24)
[2022-03-30] MEDS ORDERED: ACETAMINOPHEN 500 MG TABLET (FP) ONE (14:25)
[2022-03-30] MEDS ORDERED: predniSONE 20 MG TABLET (UD) PO ONE (14:37)
[2022-03-30] MEDS ORDERED: ONDANSETRON 4 MG TABLET PO ONE ×2 (15:04→15:23)
[2022-03-30] MEDS ORDERED: predniSONE 20 MG TABLET (UD) ONE (15:04)
[2022-03-30 16:51] VITALS: BP 132/75; PULSE 89; TEMP 98.6
== END 2022-03-30 16:52 | disposition home or self-care (01) ==
LOC: JER 12:40
PROC: 3E0F7GC Introduction of Other Therapeutic Substance into Respiratory Tract, Via Natural or Artificial Opening (ICD-10-PCS; principal; 2022-03-30)
DX: R05.1 Acute cough (principal); R09.81 Nasal congestion; R50.9 Fever, unspecified; J09.X2 Influenza due to identified novel influenza A virus with other respiratory manifestations; J45.901 Unspecified asthma with (acute) exacerbation
CPT/HCPCS: 0241U-QW; 71046-TC-FY; 99284-25

== ENCOUNTER 2022-11-10 15:02 | Emergency (ER) | payer OTHER ==
[2022-11-10 15:14] VITALS: BP 114/73; PULSE 98; RESP 16; TEMP 99.2; BMI 28.5
[2022-11-10] MEDS ORDERED: SODIUM CHLORIDE 0.9% 500 ML INFUS.BAG IV ONE (15:19)
[2022-11-10] MEDS ORDERED: MAG HYDROX/AL HYDROX/SIMETH 30 ML UNIT-DOSE CUP PO PRN (15:19)
[2022-11-10] MEDS ORDERED: FAMOTIDINE 20 MG/50 ML IVPB 20 MG/50 ML MG IVPB ONE ×2 (15:19→15:33)
[2022-11-10] MEDS ORDERED: ACETAMINOPHEN 1000 MG/100 ML BAG IVPB ONE (15:19)
[2022-11-10] MEDS ORDERED: ACETAMINOPHEN INJECTION 100 ML IVPB ONE (15:33)
[2022-11-10] MEDS ORDERED: MAG HYDROX/AL HYDROX/SIMETH 30 ML UNIT-DOSE CUP ONE (15:33)
[2022-11-10] MEDS ORDERED: SUCRALFATE 1 GM TABLET (FP) PO ONE (15:44)
[2022-11-10] MEDS ORDERED: SUCRALFATE 1 GM/10 ML UNIT DOSE CUPS ONE (16:08)
[2022-11-10 16:13] LABS: HEMATOCRIT 38.8 % (32.4-45.2); HEMOGLOBIN 13.4 G/dL (10.7-15.3); MCH 30.7 pg (25.7-33.7); MCHC 34.5 g/dl (32.0-36.0); MEAN CELL VOLUME 88.9 fl (80-96); MEAN PLT VOLUME 9.6 fl (7.5-11.1); PLATELET COUNT 275.9 10^3/uL (134-434); RBC 4.36 10^6/uL (3.60-5.2); RDW 13.5 % (11.6-15.6); WHITE BLOOD COUNT 10.5 10^3/uL (4.0-10.8)
[2022-11-10 16:28] LABS: ALBUMIN 4.3 g/dl (3.4-5.0); BILIRUBIN,TOTAL 1.3 mg/dl (0.2-1); CALCIUM 9.5 mg/dl (8.5-10); CREATININE 0.7 mg/dl (0.55-1.3); TOT PROT 7.3 g/dl (6.4-8.2)
[2022-11-10 17:22] LABS: HCG,QUALITATIVE URINE Negative
[2022-11-10 17:23] LABS: EPITHELIAL CELLS FEW /hpf
[2022-11-10 18:06] LABS: PLATELET ESTIMATE ADEQUATE
== END 2022-11-10 18:22 | disposition home or self-care (01) ==
LOC: FER 15:02
PROC: 3E033GC Introduction of Other Therapeutic Substance into Peripheral Vein, Percutaneous Approach (ICD-10-PCS; principal; 2022-11-10)
DX: R10.13 Epigastric pain (principal)
CPT/HCPCS: 36415; 76705-TC; 80053; 81003; 81015; 83690; 84703; 85027; 87086; 99284-25